=== PATIENT | female | born 1980 | race Caucasian/White ===

== ENCOUNTER 2019-03-10 21:11 | Emergency (ER) | payer OTHER ==
[~2019-03-10] VITALS: Ht 162.6 cm; Wt 84.8 kg
[2019-03-10 21:31] VITALS: Ht 162.6 cm; Wt 84.8 kg
[2019-03-11 01:14] LABS: PLATELET COUNT 526 x10^3mcL (130-400); RED CELL DISTRIBUTION WIDTH 22.4 % (11.5-14.5)
[2019-03-11 01:41] LABS: CALCIUM 9.6 mg/dL (8.5-10.1); CARBON DIOXIDE 24.1 mmol/L (21-32); CHLORIDE SERUM 101 mmol/L (98-107); CREATININE SERUM 0.6 mg/dL (0.6-1.0); GFR1 > 60 mL/min; GLUCOSE SERUM 105 mg/dL (74-106); POTASSIUM SERUM 3.3 mmol/L (3.5-5.1); SODIUM SERUM 137 mmol/L (136-145)
[2019-03-11 01:45] LABS: ALBUMIN 3.6 g/dL (3.4-5.0); ALKALINE PHOSPHATASE 62 U/L (46-116); ALT/SGPT 24 U/L (14-59); AST/SGOT 5 U/L (15-37); BILIRUBIN TOTAL 0.55 mg/dL (0.20-1.00); LIPASE 137 IU/L (73-393); TOTAL PROTEIN, SERUM 7.3 g/dL (6.4-8.2)
[2019-03-11 02:19] LABS: BAND NEUTROPHIL 5 % (0-10); PLATELET MORPHOLOGY PLATELETS INCREASED; SEGMENTED NEUTROPHILS 70 % (37-75); rbc morphology (normal/abnorm) ABNORMAL (NORMAL)
[2019-03-11 02:38] VITALS: BP 144/80
== END 2019-03-11 02:38 | disposition home or self-care (01) ==
LOC: ED 21:11
PROVIDERS: Emergency Medicine
DX: D25.9 Leiomyoma of uterus, unspecified (principal); D50.9 Iron deficiency anemia, unspecified; Z90.49 Acquired absence of other specified parts of digestive tract
CPT/HCPCS: 36415; J0500